=== PATIENT | male | born 1970 | race African-American/Black ===

== ENCOUNTER 2022-09-23 23:36 | Emergency (ER) | payer SELFPAY ==
[~2022-09-23] VITALS: Ht 175.3 cm; Wt 100.0 kg
[~2022-09-23 23:36] MED LIST: OTC MEDS
[2022-09-24] MEDS ORDERED: FAMOTIDINE 20MG TABLET PO ONE (01:00)
[2022-09-24] MEDS ORDERED: ONDANSETRON 4MG ODT PO ONE (01:00)
[2022-09-24] MEDS ORDERED: MAGNESIUM/ALUMINUM HYDROXIDE/SIMETHICONE 30ML UDC PO ONE (01:00)
[2022-09-24 01:25] VITALS: BP 158/87
== END 2022-09-24 05:47 | disposition home or self-care (01) ==
LOC: ER 23:43
DX: R11.10 Vomiting, unspecified (principal); T59.91XA Toxic effect of unspecified gases, fumes and vapors, accidental (unintentional), initial encounter; X58.XXXA Exposure to other specified factors, initial encounter; F17.290 Nicotine dependence, other tobacco product, uncomplicated
CPT/HCPCS: 71045; 93005; 99284; Q0162

== ENCOUNTER 2022-10-03 10:41 | Emergency (ER) | payer SELFPAY ==
[~2022-10-03] VITALS: Ht 185.4 cm; Wt 91.0 kg
[2022-10-03] MEDS ORDERED: ALBUTEROL (0.083%) 2.5MG/3ML NEB HHN STA (11:49)
[2022-10-03 12:39] LABS: CHLORIDE 107 mEq/L (98-107)
[2022-10-03 13:20] LABS: BASOPHILS % 0.7 % (0.0-2.0); EOSINOPHILS % 3.2 % (0.0-5.0); HEMATOCRIT. 41.9 % (42.0-52.0); HEMOGLOBIN. 14.2 g/dL (14.0-18.0); LYMPHOCYTES % 17.6 % (20.0-50.0); MEAN CORPUSCULAR HEMOGLOBIN 33.6 pg (28.0-32.0); MEAN PLATELET VOLUME 9.3 fl (7.4-10.4); MONOCYTES % 7.8 % (2.0-8.0); NEUTROPHILS % 70.7 % (40.0-76.0); PLATELET 220 x1000/uL (130-400); RED BLOOD CELL COUNT 4.23 mill/uL (4.7-6.1)
[2022-10-03] MEDS ORDERED: ACETAMINOPHEN 325MG TABLET PO NR (13:45)
[2022-10-03] MEDS ORDERED: SODIUM CHLORIDE 0.9% 1,000 ML IV ONE (13:45)
[2022-10-03] MEDS ORDERED: MAGNESIUM/ALUMINUM HYDROXIDE/SIMETHICONE 30ML UDC PO NR (14:00)
[2022-10-03] MEDS ORDERED: ONDANSETRON HCL 4MG/2ML INJ IV NR (14:00)
[2022-10-03 14:52] LABS: CLARITY URINE CLEAR (CLEAR); COLOR URINE YELLOW (YELLOW); KETONES URINE NEGATIVE (NEGATIVE); LEUKOCYTE ESTERASE URINE NEGATIVE (NEGATIVE); NITRITE URINE NEGATIVE (NEGATIVE); OCCULT BLOOD URINE NEGATIVE (NEGATIVE); PH URINE 6.5 (4.5-8.0); PROTEIN URINE NEGATIVE (NEGATIVE); SPECIFIC GRAVITY URINE 1.004 (1.005-1.030); UROBILINOGEN URINE 0.2 E.U./dL (0.2-1.0)
[2022-10-03] MEDS ORDERED: ALBU18HF2 IH (15:05)
[2022-10-03] MEDS ORDERED: OMEP20CA14 MT (15:05)
[2022-10-03] MEDS ORDERED: ACET-2708 PO (15:05)
[2022-10-03] MEDS ORDERED: ONDA4TAB50 MT (15:05)
[2022-10-03 15:30] VITALS: BP 141/99
== END 2022-10-03 15:49 | disposition home or self-care (01) ==
LOC: ER 10:41
DX: J20.9 Acute bronchitis, unspecified (principal); K29.01 Acute gastritis with bleeding; Z20.822 Contact with and (suspected) exposure to COVID-19
CPT/HCPCS: 36415; 71045; 80053; 81003; 83690; 85025; 87426; 93005; 96374; 99285; C9803; J2405

== ENCOUNTER 2022-10-21 10:01 | Emergency (ER) | payer MEDICAID ==
[~2022-10-21] VITALS: Ht 170.2 cm; Wt 77.0 kg
[~2022-10-21 10:01] MED LIST changes: +ACET-2708 PO; +ALBU18HF2 IH; +OMEP20CA14 MT; +ONDA4TAB50 MT
[2022-10-21] MEDS ORDERED: MECLIZINE 25MG TABLET PO ONE (12:00)
[2022-10-21] MEDS ORDERED: PREDNISONE 20MG TABLET PO ONE (12:15)
[2022-10-21] MEDS ORDERED: ALBUTEROL (0.083%) 2.5MG/3ML NEB HHN ONE (12:15)
[2022-10-21 13:45] LABS: CLARITY URINE CLOUDY (CLEAR); COLOR URINE YELLOW (YELLOW); KETONES URINE TRACE (NEGATIVE); LEUKOCYTE ESTERASE URINE NEGATIVE (NEGATIVE); NITRITE URINE NEGATIVE (NEGATIVE); OCCULT BLOOD URINE NEGATIVE (NEGATIVE); PH URINE 5.5 (4.5-8.0); PROTEIN URINE NEGATIVE (NEGATIVE); SPECIFIC GRAVITY URINE 1.021 (1.005-1.030)
[2022-10-21] MEDS ORDERED: P50 MT (14:02)
[2022-10-21] MEDS ORDERED: ALBU18HF2 IH (14:02)
[2022-10-21 14:29] LABS: *AMPHETAMINES SCREEN URINE NEGATIVE (NEGATIVE); *BARBITURATES SCREEN URINE NEGATIVE (NEGATIVE); *BENZODIAZEPINES SCREEN URINE NEGATIVE (NEGATIVE); *COCAINE SCREEN URINE NEGATIVE (NEGATIVE); CANNABINOID URINE SCREEN PRESUMTIVE POSITIVE (NEGATIVE); METHADONE URINE SCREEN NEGATIVE (NEGATIVE); OPIATES URINE SCREEN NEGATIVE (NEGATIVE); PHENCYCLIDINE URINE SCREEN NEGATIVE (NEGATIVE)
[2022-10-21 14:32] LABS: BASOPHILS % 0.7 % (0.0-2.0); EOSINOPHILS % 2.7 % (0.0-5.0); HEMOGLOBIN. 13.9 g/dL (14.0-18.0); LYMPHOCYTES % 20.3 % (20.0-50.0); MEAN CORPUSCULAR HEMOGLOBIN 33.1 pg (28.0-32.0); MEAN CORPUSCULAR VOLUME 99.7 fL (80.0-94.0); MEAN PLATELET VOLUME 8.8 fl (7.4-10.4); MONOCYTES % 7.8 % (2.0-8.0); NEUTROPHILS % 68.5 % (40.0-76.0); PLATELET 284 x1000/uL (130-400); RED BLOOD CELL COUNT 4.21 mill/uL (4.7-6.1); RED CELL DISTRIBUTION WIDTH 15.1 % (11.6-14.6)
[2022-10-21 14:42] LABS: CHLORIDE 105 mEq/L (98-107)
[2022-10-21 14:56] LABS: T4 FREE 1.32 ng/dL (0.76-1.46)
[2022-10-21 15:19] VITALS: BP 147/97
== END 2022-10-21 15:20 | disposition home or self-care (01) ==
LOC: ER 10:11
DX: R42 Dizziness and giddiness (principal); R06.2 Wheezing
CPT/HCPCS: 36415; 70450; 71045; 80053; 80305; 81003; 84439; 84443; 84484; 85025; 85379; 93005; 94640; 99285; J7512; J8597; Z7610

== ENCOUNTER 2023-01-11 08:32 | Emergency (ER) | payer MEDICAID ==
[~2023-01-11] VITALS: Ht 175.3 cm; Wt 75.0 kg
[~2023-01-11 08:32] MED LIST changes: +P50 MT
[2023-01-11] MEDS ORDERED: ALBU18HF2 IH (11:56)
[2023-01-11] MEDS ORDERED: HYDR-3782 MT (11:56)
[2023-01-11 11:57] VITALS: BP 131/89
== END 2023-01-11 12:05 | disposition home or self-care (01) ==
LOC: ER 08:52
DX: J45.909 Unspecified asthma, uncomplicated (principal); L29.9 Pruritus, unspecified
CPT/HCPCS: 99283

== ENCOUNTER 2023-06-25 10:46 | Emergency (ER) | payer MEDICAID, OTHER ==
[~2023-06-25] VITALS: Ht 175.3 cm; Wt 82.6 kg
[~2023-06-25 10:46] MED LIST changes: +HYDR-3782 MT
[2023-06-25 11:05] VITALS: O2SAT 100
[2023-06-25] MEDS ORDERED: IBUP-2030 MT (12:05)
[2023-06-25 12:26] VITALS: BP 115/80; PULSE 81; RESP 19; TEMP 98.2
== END 2023-06-25 12:28 | disposition home or self-care (01) ==
LOC: ER 10:46
DX: S81.052A Open bite, left knee, initial encounter (principal); M25.562 Pain in left knee; J45.909 Unspecified asthma, uncomplicated; Z79.899 Other long term (current) drug therapy; W54.0XXA Bitten by dog, initial encounter; Y93.89 Activity, other specified; Y92.89 Other specified places as the place of occurrence of the external cause; Y99.8 Other external cause status
CPT/HCPCS: 99282

== ENCOUNTER 2023-10-21 12:13 | Emergency (ER) | payer OTHER ==
[~2023-10-21] VITALS: Ht 177.8 cm; Wt 104.0 kg
[~2023-10-21 12:13] MED LIST changes: +IBUP-2030 MT
[2023-10-21 12:15] VITALS: BP 127/84; O2SAT 100
[2023-10-21] MEDS ORDERED: ALBU90AE INH (13:00)
[2023-10-21 13:42] VITALS: PULSE 89; RESP 18; TEMP 98.1
== END 2023-10-21 13:43 ==
LOC: ER 12:30
DX: J45.909 Unspecified asthma, uncomplicated (principal); F19.90 Other psychoactive substance use, unspecified, uncomplicated; F17.200 Nicotine dependence, unspecified, uncomplicated
CPT/HCPCS: 99283; 99406